=== PATIENT | male | born 1990 | race Caucasian/White ===

== ENCOUNTER 2017-12-12 10:22 | Emergency (ER) | payer SELFPAY ==
[2017-12-12 10:23] VITALS: BP 153/77; PULSE 70; RESP 18; TEMP 36.4; O2SAT 99; BMI 23.0
--- NOTE | 2017-12-12 10:39 | ED.VISSUMM ---
- ER Visit Summary Date of Service: 12/12/17 Chief Complaint: Vomiting blood History of Present Illness: The patient is a 27 M or surgical history. Currently on no medications and no blood thinners. States he ate some tuna earlier today. Had nausea and vomiting afterwards. He threw up the first time it was clear. Throat was second time clear third time look slightly pink. For time he said he look like blood with clots and it was bright red. Denies any prior history. Denies any recent abdominal pain. Denies any melena. He has never had a GI bleed. He has never had abdominal surgery. States he feels better currently. Physical Examination: Ill-appearing young male. Vital signs are stable and a febrile. H EENT exam unremarkable. Neck nontender no lymphadenopathy. Lungs clear to auscultation bilaterally. Heart regular rhythm no murmur. Abdomen is soft and nontender. Normal bowel sounds no peritoneal signs. Moving all 4 extremities. Calves nontender no edema. Skin no rashes. No petechiae or purpura. Moving all 4 extremities. Neurologic exam normal. Back exam normal. Test Results: CBC normal. Hemoglobin 16. Chemistry is normal. Gap of 8 and creatinine is 0.98. Emergency Department Course and Treatment: Patient with and sounds like an upper GI bleed most likely Vannesa-Ho tear. Screening labs will be obtained and an NG or OG will be placed. Labs are unremarkable. NG showed no gross bright red blood. And no significant coffee-ground material. Treatment Plan: Discharged to home. Return if black stool or worsening hematemesis. Started on Prilosec once a day for 2 weeks. Follow-up with a primary care physician. Disposition: Discharge Impression: Acute upper GI bleed secondary to a Vannesa-Ho tear This note was generated with [employer] dictation software. It may contain incorrect words, spelling, and punctuation that were not noted in review of the chart prior to signing ED Disposition - Plan for ED Patient: Chief Complaint: GI Bleed
[2017-12-12 11:00] LABS: Hematocrit 44.3 % (40-54); Mean Corp Hgb Conc 36.1 g/gl (32-36); Mean Corpuscular Hgb 30.9 pg (27.0-32.0); Mean Corpuscular Volume 85.7 fL (80-94); Mean Platelet Vol. 10.3 fl (6.2-12.0); Platelet Count 176 K/mm3 (150-450); RBC Distribution Width CV 12.9 % (11.6-14.6); RBC Distribution Width SD 40.2 fl (35.1-43.9); Red Blood Count 5.17 M/mm3 (4.6-6.2); White Blood Count 7.9 K/mm3 (4.4-11.0)
[2017-12-12 11:01] LABS: Scan Indicated on CBC? Y/N NO
[2017-12-12 11:14] LABS: Anion Gap 8 (5-15); BUN 20 mg/dL (7-18); BUN/Creat Ratio 20.4 RATIO (10-20); Calcium,Total 9.1 mg/dL (8.5-10.1); Chloride 105 mmol/L (98-107); Creatinine, Serum 0.98 mg/dL (0.70-1.30); EST Glomerular Filtration Rate 96 mL/min (>60); Est Glom Filt Rate - Afr Amer 116 mL/min (>60); Estimated Creatinine Clearance 117.74 ml/min; Glucose 99 mg/dL (74-106); Potassium 4.5 mmol/L (3.5-5.1); Sodium Level 141 mmol/L (136-145)
--- NOTE | 2017-12-12 11:18 | ED.DEP ---
ED Disposition - Plan for ED Patient: Disposition: Home or Assisted Living Chief Complaint: GI Bleed Instructions: Vannesa-Ho Tear Prescriptions: Omeprazole [Prilosec] 20 mg PO DAILY #14 cap Referrals: Berlin Reeves MD [STAFF PHYSICIAN] - 1 Week Additional Instructions: This is most likely a small tear of your lower esophagus from the vomiting. This is called a Vannesa-Ho tear. This should improve. Use of Prilosec 1 pill a day for the next 2 weeks. May stop. Trauma Return to the ER if throwing up more blood or develop black stool. Otherwise follow-up with primary care physician I referred you to.
[2017-12-12 11:34] VITALS: BP 148/72; PULSE 74; RESP 18
== END 2017-12-12 11:36 | disposition home or self-care (01) ==
PROVIDERS: Emergency Provider Emergency Medicine
DX: K22.6 Gastro-esophageal laceration-hemorrhage syndrome (principal)
CPT/HCPCS: 80048; 85027; 99285; A4216